=== PATIENT | male | born 1990 | race Caucasian/White ===

== ENCOUNTER 2022-10-04 23:27 | Emergency (ER) | payer OTHER, SELFPAY ==
--- NOTE | ~2022-10-04 | CT_ITS ---
EXAMINATION: CT abdomen pelvis w con DATE: 10/05/2022 03:27 INDICATION: Constipation for 3 days, lower abdominal and rectal pain, discomfort TECHNIQUE: Computed tomography (CT) of the abdomen and pelvis was performed with 100 CC Omnipaque 350 intravenous contrast. Automated exposure control and iterative reconstruction technique were employe d. Exam dose: 601.53 mGy-cm total exam DLP. COMPARISON: None. FINDINGS: Lung bases are clear. Normal heart size. No pericardial or pleural effusion. There is splenomegaly, the spleen measuring up to 16.8 cm vertical dimension. No hepatic, splenic, pa ncreatic, and adrenal or renal space-occupying mass lesion is evident. No urinary tract calculus or h ydroureteronephrosis. The urinary bladder is unremarkable. There are small bilateral fat-containing inguinal hernias. There is a small fat-containing umbilical hernia. Normal caliber of the abdominal aorta. No intraperitoneal or retroperitoneal or pelvic mass lesion or adenopathy or ascites. There is a prominent amount of fecal material within the rectum and colon but no bowel obstruction or bowel wall thickening, pneumatosis or intraperitoneal free air. Normal appendix. Included skeletal structures are unremarkable. No suspicious osteolytic or osteoblastic lesions. IMPRESSION: Prominent amount fecal material in the rectum and colon without obstruction Normal appendix Splenomegaly Small bilateral fat-containing inguinal hernias and fat-containing small umbilical hernia Reviewed, dictated and finalized at [facility]. Reviewed, dictated and finalized at [facility]. 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
[2022-10-04 23:35] VITALS: BP 139/77; PULSE 92; RESP 16; TEMP 36.9; O2SAT 98
[2022-10-05] VITALS (7 sets, daily range): BP systolic 132–153; BP diastolic 75–92; PULSE 65–110; RESP 18–20; O2SAT 96–98
[2022-10-05 00:30] LABS: Basophils Percent Auto 0.4 % (0.2-1.2); Eosinophils Absolute Auto 0.2 K/mm3 (0-0.3); Eosinophils Percent Auto 1.8 % (0-4.4); Hemoglobin 16.6 g/dL (14.0-18.0); Immature Granulocyte Absolute 0.05 K/mm3 (0.00-0.031); Immature Granulocyte Percent A 0.6 % (0-0.5); Lymphocytes Absolute Auto 2.81 K/mm3 (0.9-3.2); Lymphocytes Percent Auto 31.4 % (18.3-44.2); Mean Corpuscular HGB Conc 34.6 g/dl (32-36); Mean Corpuscular Hemoglobin 29.2 pg (26-34); Mean Corpuscular Volume 84.5 fl (80-100); Mean Platelet Volume 9.4 fl (7.4-10.4); Monocytes Absolute Auto 0.6 K/mm3 (0.1-0.6); Monocytes Percent Auto 6.3 % (2.6-8.5); Neutrophils Absolute Auto 5.3 K/mm3 (1.3-6.7); Neutrophils Percent Auto 59.5 % (45.5-73.1); Platelet Count Result 261 k/mm3 (150-375); Red Blood Count 5.68 M/mm3 (4.6-6.20); Red Cell Distribution Width 12.7 % (11.5-14.5); White Blood Count 8.9 K/mm3 (4.5-10.0)
[2022-10-05 00:40] LABS: Alanine Aminotransferase 29 U/L (6-50); Albumin Level 4.3 g/dL (3.5-5.1); Alkaline Phosphatase 84 U/L (38-126); Anion Gap 8 mmol/L (8-16); Aspartate Amino Transferase 25 U/L (17-59); Bilirubin,Total 0.6 mg/dL (0.2-1.3); Blood Urea Nitrogen 8 mg/dL (9-20); Calcium 9.1 mg/dL (8.4-10.2); Carbon Dioxide 27 mmol/L (22-30); Chloride 103 mmol/L (98-107); Estimated CRCL calculation 108 ml/min; Estimated Glomerular Filt Rate > 60; Glucose 101 mg/dL (65-110); Lipase 144 U/L (23-300); Potassium 4.2 mmol/L (3.4-5.0); Sodium 138 mmol/L (137-145)
--- NOTE | 2022-10-05 01:34 | ED.ABDPAIN ---
HPI - Abdominal Pain General Chief Complaint: Abdominal Pain <GEOFFREY Fang Last Filed: 10/05/22 17:07> Stated Complaint: abdominal pain <GEOFFREY Fang Last Filed: 10/05/22 17:07> Time Seen by Provider: 10/05/22 00:03 <GEOFFREY Fang Last Filed: 10/05/22 17:07> Source: patient <GEOFFREY Fang Last Filed: 10/05/22 17:07> Mode of arrival: ambulatory <GEOFFREY Fang Last Filed: 10/05/22 17:07> Limitations: no limitations <GEOFFREY Fang Last Filed: 10/05/22 17:07> History of Present Illness HPI narrative: Patient is a 31-year-old male who presents the ED with report of constipation. Patient reports it has been 3 to 4 days since he had a bowel movement. He typically has several bowel movements a day. He has tried drinking apple juice, but has not tried any laxatives. He was able to pass some small pellets today, but had discomfort in his rectal region and lower abdomen which prompted his presentation. He denies any other sx's, denies fever, nausea, vomiting, dysuria, hematuria, rectal bleeding. <GEOFFREY Fang Last Filed: 10/05/22 17:07> Related Data Allergies/Adverse Reactions: Allergies Allergy/AdvReac Type Severity Reaction Status Date / Time No Known Allergies Allergy Verified 10/04/22 23:38 <GEOFFREY Fang Last Filed: 10/05/22 17:07> Review of Systems Review of Systems: CONSTITUTIONAL: Denies fever, chills, or sweats. CARDIOVASCULAR: Denies chest pain. RESPIRATORY: Denies dyspnea. GASTROINTESTINAL: Reports abdominal discomfort, rectal pain, constipation. Denies rectal bleeding, nausea, vomiting, or diarrhea. GENITOURINARY: Denies dysuria or hematuria. <GEOFFREY Fang Last Filed: 10/05/22 17:07> All systems reviewed & are unremarkable except as noted in HPI and below <Sylvia Eason PA-C - Last Filed: 10/05/22 17:07> PMFSH Past Medical History Medical History: Medical History (Updated 10/05/22 @ 03:44 by Sylvia Eason PA-C) Hemorrhoids <Sylvia Eason PA-C - Last Filed: 10/05/22 17:07> Surgical History Surgical History: Surgical History (Updated 10/05/22 @ 01:38 by Sylvia Eason PA-C) No pertinent past surgical history <Sylvia Esaon PA-C - Last Filed: 10/05/22 17:07> Social History Social History: Social History (Updated 10/05/22 @ 01:38 by Sylvia Eason PA-C) Smoking status: Never smoker <Sylvia Eason PA-C - Last Filed: 10/05/22 17:07> Exam Narrative: GENERAL: Well appearing, well-nourished, non-toxic, in no acute distress. HEAD: Normocephalic, atraumatic. NECK: Supple. No adenopathy, no masses. RESPIRATORY: Airway patent, respirations nonlabored. Clear to auscultation bilaterally, no rales, rhonchi, wheezing. CARDIOVASCULAR: Regular rate and rhythm without murmurs, rubs, or gallops. Peripheral pulses 2+ and equal bilaterally. ABDOMINAL: Soft, minimal lower abdominal tenderness. Hypoactive BS. MUSCULOSKELETAL: Moves all extremities. Strength/ROM intact without gross deformities. SKIN: Warm, dry, normal color. No rashes. NEURO: A&O X3. Speech clear. Cranial nerves II-XII grossly intact. Steady gait. No ataxic movements. PSYCHIATRIC: Appropriate mood and affect. Normal interaction. <Sylvia Eason PA-C - Last Filed: 10/05/22 17:07> Course BUSINESS UNIT CONTROLLER/PA Physician Supervision For this patient encounter, I reviewed the BUSINESS UNIT CONTROLLER or PA documentation, treatment plan, and medical decision making and I had [id number] time with this patient. Patient is a 31-year-old male presenting with abdominal pain and constipation. He is tender on exam so CT was obtained. CT is concerning for prominent rectal stool burden but no other acute abnormalities. Patient is agreeable to an enema at this time. Patient unable to tolerate an enema. Will prescribe GoLytely and M
[2022-10-05 02:01] LABS: Appearance Urine Clear (Clear); Bilirubin Urine Negative (Negative); Blood Urine Negative (Negative); Color Urine Yellow (Yellow); Glucose Urine UA Negative (Negative); Ketones Urine Negative (Negative); Leukocyte Esterase Ur Negative LEU/UL (Negative); Nitrate Urine Negative (Negative); Protein Urine Negative (Negative); Specific Grav Ur 1.015 (1.001-1.035); Urobilinogen Urine 0.2 mg/dL (<2.0)
[2022-10-05 02:08] LABS: Squamous Epithelial Cell Urine Rare /hpf (Few)
[2022-10-05 02:21] LABS: Add Urine Microscopic? NO
[2022-10-05] MEDS: SODIUM CHLORIDE 0.9% IV 1,000 ML 999 ML IV CONT (02:44)
[2022-10-05] MEDS: BISACODYL 5 MG TABLET EC PO (04:11)
--- NOTE | 2022-10-05 04:43 | PC.NURSE ---
faxed CT report has been received.
== END 2022-10-05 06:22 | disposition home or self-care (01) ==
PROVIDERS: Physician Assistant; Emergency Provider Emergency Medicine
DX: K59.00 Constipation, unspecified (principal); R16.1 Splenomegaly, not elsewhere classified; K40.20 Bilateral inguinal hernia, without obstruction or gangrene, not specified as recurrent
CPT/HCPCS: 36415; 74177; 80053; 81003; 83690; 85025; 96360; 99284; A9270; J7030; Q9967

== ENCOUNTER 2023-10-06 20:26 | Emergency (ER) | payer OTHER, SELFPAY ==
--- NOTE | ~2023-10-06 | XR_ITS ---
EXAMINATION: XR chest 2V Exam Date/Time: 10/06/2023 21:30 [employer] HISTORY: chest pain, cough, SORE THROAT Comparison: None. RESULT: Lines, tubes, and devices: None. Lungs and pleura: Clear. Cardiomediastinal silhouette: Normal. Other: No acute osseous or upper abdominal finding. IMPRESSION: No acute cardiopulmonary process. Reviewed, dictated and finalized at [facility] [employer]
[2023-10-06 20:29] VITALS: BP 145/75; PULSE 96; RESP 18; TEMP 36.2; O2SAT 100
[2023-10-06 20:39] VITALS: O2SAT 100
[2023-10-06 21:07] LABS: Strep Group A RT-PCR NOT DETECTED (Negative)
[2023-10-06 21:18] LABS: Influenza A QL RT-PCR Negative (Negative); Influenza B QL RT-PCR Negative (Negative); SARS-CoV-2 RNA PCR Negative (Negative)
--- NOTE | 2023-10-06 21:33 | ECG_ITS ---
Measurements Intervals [place] Rate: 81 P: 47 AL: 148 QRS: 18 QRSD: 90 T: 39 QT: 330 QTc: 383 Interpretive Statements SINUS RHYTHM MINIMAL Q WAVES- INFERIOR LEADS BASELINE ARTIFACT- I, II BORDERLINE ECG NO PREVIOUS ECG AVAILABLE FOR COMPARISON Electronically Signed On 10-07-2023 6:21:21 [employer] by Blaine Valerio D.O.
--- NOTE | 2023-10-06 21:34 | ED.URI ---
HPI - URI/Sore Throat General Chief Complaint: Upper Respiratory Infection Stated Complaint: sore throat, cold symptoms Time Seen by Provider: 10/06/23 21:06 History of Present Illness HPI Narrative: 32-year-old male reports for evaluation for sore throat, cough and congestion for 2 days. Patient states his cough is productive with mucus any did note a small amount of blood in his mucus earlier. He reports a sore throat that is worse with swallowing. His states his ears were hurting earlier but that has since resolved. He states on the way to the emergency department, he developed chest pain that lasted 2-3 minutes and did not radiate anywhere. Without associated diaphoresis or nausea. It occurred while he was sitting in the car and spontaneously resolved. Reports a couple episodes of diarrhea intermittently for the past 2 days. He denies abdominal pain, vomiting, fever. Related Data Allergies Allergy/AdvReac Type Severity Reaction Status Date / Time No Known Allergies Allergy Verified 10/04/22 23:38 Review of Systems Review of Systems: CONSTITUTIONAL: Denies fever, chills, or sweats. EYES: Denies visual changes, redness, or discharge. ENT: see HPI CARDIOVASCULAR: Denies chest pain, palpitations, or edema. RESPIRATORY: See HPI GASTROINTESTINAL: see HPI GENITOURINARY: Denies dysuria or hematuria. SKIN: Denies rash or itching. MUSCULOSKELETAL: Denies back pain, joint pain, or myalgia. NEUROLOGIC: Denies headache, numbness, or weakness. PSYCHIATRIC: Denies anxiety or depression. PMFSH Past Medical History Medical History Hemorrhoids Surgical History Surgical History No pertinent past surgical history Social History Social History Smoking status: Never smoker Exam Narrative: GENERAL: Well-appearing, well-nourished, and in no acute distress. patient resting comfortably in exam bed. He is pleasant and conversational. HEAD: Normocephalic, atraumatic. EYES: PERRLA and EOMI. ENT: Nares clear, no rhinorrhea or epistaxis. Mucous membranes moist. Posterior pharynx with a mild amount of erythema. No tonsillar hypertrophy or exudates. Uvula midline. NECK: Supple. CHEST: Clear to auscultation. No respiratory distress. HEART: Regular rate and rhythm. No murmur heard. Normal peripheral pulses. ABDOMEN: Soft, nontender, nondistended, normal active bowel sounds. No CVA tenderness. EXTREMITIES: Normal range of motion. No edema. Negative Homans bilaterally. SKIN: Warm, dry, no rash. NEURO: No focal deficits. Alert and oriented x3 Course Vital Signs Vital signs: Vital Signs Temperature 97.1 F L 10/06/23 20:29 Pulse Rate 96 10/06/23 20:29 Respiratory Rate 18 10/06/23 20:29 Blood Pressure 145/75 H 10/06/23 20:29 Pulse Oximetry 100 10/06/23 20:29 Oxygen Delivery Room Air 10/06/23 20:29 Temperature 97.1 F L 10/06/23 20:29 Pulse Rate 96 10/06/23 20:29 Respiratory Rate 18 10/06/23 20:29 Blood Pressure 145/75 H 10/06/23 20:29 Pulse Oximetry 100 10/06/23 20:39 Oxygen Delivery Room Air 10/06/23 20:39 MDM - URI/Sore Throat MDM Narrative Medical decision making narrative: 32-year-old male reports for evaluation for sore throat, productive cough, congestion for the past 2 days with associated intermittent diarrhea and a short episode of chest pain lasting 2-3 minutes prior to arrival. See HPI for further history. Vitals significant for mildly elevated blood pressure, Otherwise unremarkable. He is afebrile and satting 100% on room air. He is well appearing on exam. COVID, flu, mono and strep test are negative. CBC and chemistries are unremarkable. BNP normal. Chest x-ray without acute cardiopulmonary abnormality. Troponin less than 0.012. EKG shows sinus rhythm, no ischemic changes.
[2023-10-06 22:37] LABS: Basophils Percent Auto 0.4 % (0.2-1.2); Eosinophils Absolute Auto 0.1 K/mm3 (0-0.3); Eosinophils Percent Auto 1.1 % (0-4.4); Hematocrit 50.7 % (42.0-52.0); Hemoglobin 17.2 g/dL (14.0-18.0); Immature Granulocyte Absolute 0.06 K/mm3 (0.00-0.031); Immature Granulocyte Percent A 0.6 % (0-0.5); Lymphocytes Absolute Auto 2.14 K/mm3 (0.9-3.2); Lymphocytes Percent Auto 21.8 % (18.3-44.2); Mean Corpuscular HGB Conc 33.9 g/dl (32-36); Mean Corpuscular Volume 85.4 fl (80-100); Mean Platelet Volume 9.6 fl (7.4-10.4); Monocytes Absolute Auto 0.6 K/mm3 (0.1-0.6); Monocytes Percent Auto 6.4 % (2.6-8.5); Neutrophils Absolute Auto 6.8 K/mm3 (1.3-6.7); Neutrophils Percent Auto 69.7 % (45.5-73.1); Platelet Count Result 247 k/mm3 (150-375); Red Blood Count 5.94 M/mm3 (4.6-6.20); Red Cell Distribution Width 12.9 % (11.5-14.5); White Blood Count 9.8 K/mm3 (4.5-10.0)
[2023-10-06 22:54] LABS: Partial Thromboplastin Time 29.5 SECONDS (22.3-36.8); Prothrombin Time 14.2 Seconds (11.1-14.7)
[2023-10-06 23:04] LABS: Alanine Aminotransferase 26 U/L (6-50); Albumin Level 4.4 g/dL (3.5-5.1); Alkaline Phosphatase 65 U/L (38-126); Anion Gap 8 mmol/L (8-16); Aspartate Amino Transferase 24 U/L (17-59); Blood Urea Nitrogen 15 mg/dL (9-20); Calcium 9.7 mg/dL (8.4-10.2); Carbon Dioxide 28 mmol/L (22-30); Chloride 103 mmol/L (98-107); Estimated CRCL calculation 116 ml/min; Estimated Glomerular Filt Rate > 60; Glucose 89 mg/dL (65-110); Potassium 3.9 mmol/L (3.4-5.0); Sodium 139 mmol/L (137-145)
[2023-10-06 23:09] LABS: D Dimer < 0.27 ug/mL (<0.48)
[2023-10-06 23:10] LABS: NT Pro B Type Natriuretic Pept < 20 pg/mL (19.9-100); Troponin I < 0.012 ng/mL (0.000-0.034)
[2023-10-07 00:28] LABS: Monoscreen Negative (Negative); Negative Monotest Control Negative (Negative); Positive Monotest Control Positive (Positive)
[2023-10-07] MEDS: IBUPROFEN 400 MG TABLET 800 MG PO (00:54)
[2023-10-07 00:57] VITALS: BP 138/70; PULSE 90; RESP 18; O2SAT 99
== END 2023-10-07 00:59 | disposition home or self-care (01) ==
PROVIDERS: Emergency Medicine; Emergency Provider Physician Assistant
DX: J00 Acute nasopharyngitis [common cold] (principal); R07.89 Other chest pain; Z20.822 Contact with and (suspected) exposure to COVID-19
CPT/HCPCS: 36415; 71046; 80053; 83880; 84484; 85025; 85380; 85610; 85730; 86308; 87636; 87651; 93005; 99284; A9270